=== PATIENT | female | born 2000 | race Caucasian/White ===

== ENCOUNTER 2023-01-28 21:06 | Emergency (ER) | payer MEDICAID ==
[~2023-01-28] VITALS: Ht 162.6 cm; Wt 86.2 kg
[2023-01-28 21:23] VITALS: PULSE 78; RESP 18; TEMP 98.6; O2SAT 99
[2023-01-28 22:50] LABS: BASOPHILS # (AUTO) 0.1 K/uL (0.00-0.22); BASOPHILS % (AUTO) 0.8 % (0.0-2.0); EOSINOPHILS # (AUTO) 0.2 K/uL (0-0.4); EOSINOPHILS % (AUTO) 2.6 % (0.0-4.0); HEMATOCRIT 36.1 % (36-48); HEMOGLOBIN 12.1 g/dL (12.0-16.0); LYMPHOCYTES # (AUTO) 3.9 K/uL (2.5-16.5); LYMPHOCYTES % (AUTO) 43.9 % (20.5-51.1); MEAN CORPUSCULAR HEMOGLOBIN 28 pg (27-31); MEAN CORPUSCULAR HGB CONC 34 g/dL (33-37); MEAN CORPUSCULAR VOLUME 84.3 fL (80-94); MONOCYTES # (AUTO) 0.6 K/uL (0.8-1.0); MONOCYTES % (AUTO) 6.9 % (1.7-9.3); NEUTROPHILS # (AUTO) 4.1 K/uL (1.8-7.7); NEUTROPHILS % (AUTO) 45.8 % (42.2-75.2); PLATELET COUNT (AUTO) 301 K/uL (140-450); RED BLOOD CELL COUNT(AUTO) 4.28 MIL/uL (4.20-5.40); RED CELL DISTRIBUTION WIDTH 14.2 % (11.6-13.7)
[2023-01-28 22:52] LABS: APPEARANCE,URINE CLEAR (CLEAR); BILIRUBIN,URINE NEGATIVE (NEGATIVE); BLOOD, URINE NEGATIVE (NEGATIVE); COLOR,URINE YELLOW (YELLOW); LEUKOCYTE ESTERASE ,URINE 2+ (NEGATIVE); NITRITE, URINE NEGATIVE (NEGATIVE); PROTEIN,URINE NEGATIVE (NEGATIVE); UGLUCOSE NEGATIVE (NEGATIVE); UROBILINOGEN,URINE 0.2 EU/dL (0.2 - 1)
[2023-01-28 23:02] LABS: ANION GAP 13.4 (8-16); CARBON DIOXIDE 26.5 mmol/L (21-32); CREATININE 0.7 mg/dL (0.6-1.3); POTASSIUM 3.9 mmol/L (3.5-5.1)
[2023-01-28 23:09] LABS: BACTERIA,URINE >30 (MANY) /HPF (None Seen); MUCUS,URINE 1+ /LPF (None Seen); RBC,URINE 0-5 /HPF (0-5); SQUAMOUS EPITHELIAL CELL,UR 0-3 (FEW) /LPF (0-3 (FEW)); WBC,URINE 20-60 /HPF (0-5)
[2023-01-28 23:57] LABS: ALANINE AMINOTRANSFERASE 53 U/L (12-78); ALBUMIN 3.6 g/dL (3.4-5.0); ALKALINE PHOSPHATASE 50 U/L (50-136); ASPARTATE AMINOTRANSFERASE 29 U/L (15-37); BILIRUBIN,DIRECT 0.1 mg/dL (0.0-0.3); TOTAL BILIRUBIN 0.2 mg/dL (0.0-1.0); TOTAL PROTEIN, SERUM 7.3 g/dL (6.4-8.2)
[2023-01-29] MEDS ORDERED: NITR100C7 PO (02:13)
[2023-01-29 02:30] VITALS: PULSE 78; RESP 18; TEMP 98.6; O2SAT 99
== END 2023-01-29 02:30 | disposition home or self-care (01) ==
LOC: MED 21:06
DX: O26.891 Other specified pregnancy related conditions, first trimester (principal); R10.31 Right lower quadrant pain; Z3A.08 8 weeks gestation of pregnancy; Z79.2 Long term (current) use of antibiotics
CPT/HCPCS: 36415; 76817; 80048; 80076; 81001; 81025; 83690; 84702; 85025; 87086; 99284

== ENCOUNTER 2023-03-01 23:52 | Emergency (ER) | payer MEDICAID ==
[~2023-03-01] VITALS: Ht 162.6 cm; Wt 86.2 kg
[~2023-03-01 23:52] MED LIST: NITR100C7 PO
[2023-03-02 00:02] VITALS: BP 148/73; PULSE 74; RESP 16; TEMP 97.4; O2SAT 100
== END 2023-03-02 01:13 | disposition left against medical advice (07) ==
LOC: MED 23:52
DX: O26.891 Other specified pregnancy related conditions, first trimester (principal); Z3A.09 9 weeks gestation of pregnancy; Z53.21 Procedure and treatment not carried out due to patient leaving prior to being seen by health care provider
CPT/HCPCS: 99281

== ENCOUNTER 2023-04-08 18:02 | Emergency (ER) | payer MEDICAID ==
[~2023-04-08] VITALS: Ht 165.1 cm; Wt 86.2 kg
[2023-04-08 18:32] VITALS: BP 135/93; PULSE 103; RESP 18; TEMP 98.5; O2SAT 98
[2023-04-08] MEDS ORDERED: METO-485 PO (19:21)
[2023-04-08] MEDS ORDERED: AMOX1TAB8 PO (19:21)
[2023-04-08] MEDS ORDERED: IMO2 PO (19:21)
[2023-04-08] MEDS ORDERED: BEN12.5L PO (19:21)
[2023-04-08 19:33] VITALS: BP 135/93; PULSE 95; RESP 18; TEMP 98.5; O2SAT 98
== END 2023-04-08 19:33 | disposition home or self-care (01) ==
LOC: MED 18:02
DX: O99.512 Diseases of the respiratory system complicating pregnancy, second trimester (principal); J32.8 Other chronic sinusitis; R19.7 Diarrhea, unspecified; Z3A.14 14 weeks gestation of pregnancy
CPT/HCPCS: 99283

== ENCOUNTER 2023-05-09 01:25 | Emergency (ER) | payer MEDICAID ==
[~2023-05-09] VITALS: Ht 162.6 cm; Wt 108.9 kg
[~2023-05-09 01:25] MED LIST changes: +AMOX1TAB8 PO; +BEN12.5L PO; +IMO2 PO; +METO-485 PO
[2023-05-09 01:27] VITALS: BP 122/71; PULSE 86; RESP 18; TEMP 96.8; O2SAT 97
[2023-05-09 01:40] VITALS: O2SAT 98
[2023-05-09] MEDS ORDERED: ALBUTEROL SULFATE/IPRATROPIU 3 ML SOL IH ONE (01:50)
[2023-05-09 02:01] VITALS: PULSE 86; RESP 19; O2SAT 99
[2023-05-09 02:12] LABS: FLU A ANTIGEN negative (NEGATIVE); FLU B ANTIGEN NEGATIVE (NEGATIVE)
[2023-05-09] MEDS ORDERED: ALBU0.0912 INH (03:06)
== END 2023-05-09 03:13 | disposition home or self-care (01) ==
LOC: MED 01:25
DX: J45.901 Unspecified asthma with (acute) exacerbation (principal); Z20.822 Contact with and (suspected) exposure to COVID-19; Z79.899 Other long term (current) drug therapy
CPT/HCPCS: 94640; 99283

== ENCOUNTER 2023-07-11 09:05 | Emergency (ER) | payer MEDICAID ==
[~2023-07-11] VITALS: Ht 165.1 cm; Wt 90.7 kg
[~2023-07-11 09:05] MED LIST changes: +ALBU0.0912 INH
[2023-07-11 09:08] VITALS: BP_SYST 143; BP_SYST 86; BP_DIAS 119; BP_DIAS 73; PULSE 126; RESP 21; TEMP 98.3; O2SAT 98
[2023-07-11] MEDS ORDERED: NACL 0.9% 1,000 ML IV ONE (09:15)
[2023-07-11] MEDS ORDERED: ONDANSETRON 4 MG/2 ML VIAL IVP ONE (09:15)
[2023-07-11 09:20] VITALS: BP 105/63; PULSE 113; RESP 26; TEMP 98.3; O2SAT 96
[2023-07-11] MEDS ORDERED: ALBU0.0912 INH (09:34)
[2023-07-11] MEDS ORDERED: BENZ100C6 PO (09:34)
== END 2023-07-11 10:04 | disposition home or self-care (01) ==
LOC: MED 09:05
DX: R05.9 Cough, unspecified (principal); R06.02 Shortness of breath; J45.909 Unspecified asthma, uncomplicated; Z79.899 Other long term (current) drug therapy
CPT/HCPCS: 99283; J2405